=== PATIENT | female | born 1955 | race Caucasian/White ===

== ENCOUNTER 2021-07-05 09:29 | Emergency (ER) | payer MEDICAID, MEDICARE, OTHER ==
[~2021-07-05] VITALS: Ht 160 cm; Wt 79.4 kg
--- NOTE | 2021-07-05 09:44 | NUR ---
DR BEJARANO AT BEDSIDE FOR EVALUATION.
--- NOTE | 2021-07-05 09:51 | NUR ---
TO RADIOLOGY VIA [facility] FOR CT SCAN.
--- NOTE | 2021-07-05 10:06 | NUR ---
BACK [facility] RADIOLOGY.
[2021-07-05] MEDS ORDERED: DOCU100C36 PO (10:18)
[2021-07-05] MEDS ORDERED: VITAMIN B12 PO (10:18)
[2021-07-05] MEDS ORDERED: PRIM50TA27 PO (10:18)
[2021-07-05] MEDS ORDERED: LEVO50TA8 PO (10:18)
[2021-07-05] MEDS ORDERED: LEVE500T9 PO (10:18)
[2021-07-05] MEDS ORDERED: OMEP20CA15 PO (10:18)
[2021-07-05] MEDS ORDERED: BUSP15TA3 PO (10:18)
[2021-07-05] MEDS ORDERED: LAMO200T10 PO (10:18)
[2021-07-05] MEDS ORDERED: AMLO10TA59 PO (10:18)
[2021-07-05] MEDS ORDERED: ATOR20TA PO (10:18)
[2021-07-05] MEDS ORDERED: CLOP75TA15 PO (10:18)
[2021-07-05 10:23] LABS: HEMATOCRIT 43.5 % (31.2-41.9); MEAN CORPUSCULAR HEMOGLOBIN 30.5 uug (24.7-32.8); MEAN CORPUSCULAR VOLUME 90.7 fL (75.5-95.3); PLATELET COUNT (AUTO) 174 K/uL (179-408)
[2021-07-05 10:28] LABS: CARBON DIOXIDE 26 mmol/L (21-32); CHLORIDE 103 mmol/L (98-107); CREATININE 0.6 mg/dL (0.6-1.3); GLUCOSE 102 mg/dL (74-106); POTASSIUM 3.9 mmol/L (3.5-5.1); UREA NITROGEN, BLOOD 11 mg/dL (7-18)
--- NOTE | 2021-07-05 11:02 | NUR ---
pt was able to walk around in er.
--- NOTE | 2021-07-05 11:02 | NUR ---
Patient discharged to home in stable condition. Written and verbal after care instructions given. Patient verbalizes understanding of instructions. Stressed follow up or return to ER for worsening s/s. pt accompanied by sister.
[2021-07-05 11:03] VITALS: BP 141/71
== END 2021-07-05 11:04 | disposition home or self-care (01) ==
LOC: ER 09:29
DX: S09.90XA Unspecified injury of head, initial encounter (principal); W18.30XA Fall on same level, unspecified, initial encounter; Y92.89 Other specified places as the place of occurrence of the external cause; E03.9 Hypothyroidism, unspecified; E78.5 Hyperlipidemia, unspecified; Z79.890 Hormone replacement therapy; Z79.899 Other long term (current) drug therapy; Z79.02 Long term (current) use of antithrombotics/antiplatelets; I44.7 Left bundle-branch block, unspecified; M79.675 Pain in left toe(s)
CPT/HCPCS: 36415; 70450; 73630; 84484; 85025; 85730; 93005; A4663